=== PATIENT | male | born 1965 | race Caucasian/White ===

== ENCOUNTER 2016-06-20 19:15 | Emergency (ER) | payer OTHER ==
[2016-06-20] MEDS ORDERED: DOXYCYCLINE HYCLATE 100 MG TABLET ONE (21:45)
[2016-06-20] MEDS ORDERED: CEPHALEXIN 500 MG CAPSULE ONE (21:45)
== END 2016-06-20 22:04 | disposition home or self-care (01) ==
LOC: ED 19:15
DX: G56.31 Lesion of radial nerve, right upper limb (principal); L03.115 Cellulitis of right lower limb; M62.81 Muscle weakness (generalized); R20.0 Anesthesia of skin
CPT/HCPCS: 99283 ×2; 93005; A9270 ×2

== ENCOUNTER 2016-07-06 13:09 | Emergency (ER) | payer OTHER ==
[2016-07-06] MEDS ORDERED: CEFTRIAXONE 1 GRAM DUPLEX 50 ML IV ONE (15:08)
[2016-07-06] MEDS ORDERED: PREDNISONE 20 MG TABLET ONE (15:09)
[2016-07-06] MEDS ORDERED: DOXYCYCLINE HYCLATE 100 MG TABLET ONE (15:09)
== END 2016-07-06 15:53 | disposition home or self-care (01) ==
LOC: ED 13:09
DX: L03.115 Cellulitis of right lower limb (principal)
CPT/HCPCS: 99283 ×2; 96365; J7512; A9270; J0696

== ENCOUNTER 2016-07-30 10:41 | Emergency (ER) | payer OTHER ==
[2016-07-30] MEDS ORDERED: AMOXICILLIN TRIHYDRATE 250 MG CAPSULE ONE (11:55)
[2016-07-30] MEDS ORDERED: DOXYCYCLINE HYCLATE 100 MG TABLET ONE (11:55)
[2016-07-30] MEDS ORDERED: PREDNISONE 20 MG TABLET ONE (11:55)
== END 2016-07-30 12:13 | disposition home or self-care (01) ==
LOC: ED 10:41
DX: L03.116 Cellulitis of left lower limb (principal); L03.115 Cellulitis of right lower limb; T78.40XA Allergy, unspecified, initial encounter; J45.909 Unspecified asthma, uncomplicated; G89.29 Other chronic pain; M25.512 Pain in left shoulder; Z79.891 Long term (current) use of opiate analgesic; Z79.899 Other long term (current) drug therapy
CPT/HCPCS: 99283 ×2; A9270 ×2; J7512